=== PATIENT | female | born 1960 | race Caucasian/White ===

== ENCOUNTER → 2017-01-21 | Outpatient (CLI) | payer OTHER ==
[~2017-01-21] MED LIST: DIOVAN PO
--- NOTE | ~2017-01-21 | CT4 ---
[facility] A Service of [facility] RADIOLOGY TEXT RESULTS PATIENT: CHARITO PAULSON [facility] : 60 UNIT #: [id number] AGE: [address]: DOMINGA OH APRN SEX: F ORDER DR: [id number] [facility] [address] [place], [place] [address] [id number] O MR#: [id number] Acc #: [id number] NAME: CHARITO PAULSON : 1960 SEX: F STUDY DATE/TIME: 01/21/2017 12:25 UNIT: [facility] ROOM: STUDY DESCRIPTION: CT Abd and Pelv Wo Cont Attending Physician: Dominga Oh Aprn Referring Physician: Dominga Oh Aprn Ordering Physician: Dominga Oh Aprn Primary Care Physician: Hardy Jackson M.D. MEDICAL IMAGING REPORT This report is preliminary unless electronic signature is present EXAM CT abdomen and pelvis without contrast Date: 01/21/2017 HISTORY Treatment for presumed diverticulitis with minimal improvement in 48 hours. Abdominal distension and lower abdominal pain for 1 week. Evaluate spleen. History of idiopathic thrombocytopenic purpura. Previous appendectomy, hysterectomy. TECHNIQUE This CT exam was performed with one or more of the following radiation dose reduction techniques: automatic exposure control, adjustment of mA and/or kV according to patient size, and iterative reconstruction. COMPARISON HIDA scan 03/22/2013. Right upper quadrant ultrasound 03/22/2013. No previous CT of this institution for comparison. PROCEDURE Final axial images from the lung bases through lesser trochanters, and enteric contrast was administered. Sagittal and coronal reformatted images were obtained. FINDINGS Abdomen: 3.8 cm cyst is seen in the hepatic dome. Spleen size is within normal limits measuring 13.2 cm cranial caudally. Gallbladder, pancreas, adrenals and kidneys have normal noncontrast appearance. Appendectomy. Bowel appears grossly non-thickened, nondilated, noninflamed. No free air, free fluid or pathologic adenopathy is identified. [facility] A Service of [facility] RADIOLOGY TEXT RESULTS PATIENT: CHARITO PAULSON LOCATION: [facility] : 60 UNIT #: [id number] AGE: [address]: DOMINGA OH APRN SEX: F ORDER DR: Pelvis: Urinary bladder and rectum are within normal limits. Hysterectomy. No pelvic adenopathy or free fluid. Degenerative loss of disc space height at L1-2 with endplate sclerosis. Degenerative changes of bilateral sacroiliac joints. No acute osseous abnormalities. Lung bases are clear. IMPRESSION 1. No acute findings within the abdomen or pelvis. No CT evidence of acute diverticulitis or CT explanation of the patient's pain. 2. Hepatic cysts. 3. Normal size of the spleen. 4. Appendectomy, hysterectomy. Dictated by... Jeimy Rivera M.D. THIS IS AN ELECTRONICALLY VERIFIED REPORT Jeimy Rivera M.D. at 01/23/2017 8:51 AM DARNELL/merna TD: 01/22/2017 06:36 JOB #: [id number] MEDICAL IMAGING REPORT Page 1 of 1 COPY
== END | disposition home or self-care (01) ==
LOC: CCAT 10:53
DX: R14.0 Abdominal distension (gaseous) (principal); K57.92 Diverticulitis of intestine, part unspecified, without perforation or abscess without bleeding; K76.89 Other specified diseases of liver; Z90.710 Acquired absence of both cervix and uterus; Z90.49 Acquired absence of other specified parts of digestive tract
CPT/HCPCS: 74176